=== PATIENT | female | born 1985 | race Caucasian/White ===

== ENCOUNTER 2021-07-21 15:16 | Emergency (ER) | payer MEDICAID ==
[~2021-07-21] VITALS: Ht 157.5 cm; Wt 57.0 kg
[2021-07-21] MEDS ORDERED: PENI500T MT (15:49)
[2021-07-21] MEDS ORDERED: IBUP-2029 MT (15:49)
[2021-07-21] MEDS ORDERED: KETOROLAC 60MG/2ML VIAL IM ONE (16:00)
[2021-07-21 16:48] VITALS: BP 110/57
== END 2021-07-21 16:48 | disposition home or self-care (01) ==
LOC: ER 15:16
DX: R68.84 Jaw pain (principal); K08.89 Other specified disorders of teeth and supporting structures; K04.01 Reversible pulpitis; Z87.828 Personal history of other (healed) physical injury and trauma; Z98.890 Other specified postprocedural states
CPT/HCPCS: 81025; 96372; 99283; J1885